=== PATIENT | female | born 1985 | race African-American/Black ===

== ENCOUNTER → 2016-08-11 | Outpatient (CLI) | payer MEDICAID ==
[2016-08-11 11:04] LABS: Basophils # (auto) 0 uL; Basophils % (auto) 0.3 % (0.0-2.0); DEFINITIVE VIEW TRANSMISSION; Eosinophils # (auto) 0.2 uL; Eosinophils % (auto) 4.1 % (0.0-7.0); Hematocrit 26.1 % (36.0-46.0); Hemoglobin 8.7 g/dL (12.2-16.2); Lymphocytes # (auto) 1.2 uL; Lymphocytes % (auto) 24.1 % (10.0-50.0); Mean Corpuscular Hemoglobin 24.9 pg (28.0-32.0); Mean Corpuscular Hgb Conc. 33.2 g/dL (32.0-36.0); Mean Corpuscular Volume 74.9 fL (80.0-100.0); Mean Platelet Volume 8.5 fL (7.4-10.4); Monocytes # (auto) 0.2 uL; Monocytes % (auto) 4.8 % (0.0-12.0); Neutrophils # (auto) 3.2 uL; Neutrophils % (auto) 66.7 % (37.0-80.0); Nucleated Red Blood Cells % 2.8 %; Platelet Count (auto) 293 10^3/uL (140-450); Red Cell Distribution Width 18.2 % (11.6-16.0); White Blood Cell 4.8 10^3/uL (4.4-10.8)
== END | disposition home or self-care (01) ==
LOC: LAB 10:34
PROVIDERS: ATTEND Obstetrics & Gynecology
DX: Z34.80 Encounter for supervision of other normal pregnancy, unspecified trimester (principal)
CPT/HCPCS: 36415; 80307; 85025; 86703; 86762; 86850; 86900; 86901; 87086; 87340

== ENCOUNTER → 2016-09-10 | Outpatient (CLI) | payer MEDICAID ==
[2016-09-10 10:37] LABS: Basophils # (auto) 0 uL; Basophils % (auto) 0.2 % (0.0-2.0); DEFINITIVE SEE PRINTOUT; Eosinophils # (auto) 0.2 uL; Eosinophils % (auto) 3.8 % (0.0-7.0); Hematocrit 26.4 % (36.0-46.0); Hemoglobin 8.4 g/dL (12.2-16.2); Lymphocytes # (auto) 1.3 uL; Lymphocytes % (auto) 28.2 % (10.0-50.0); Mean Corpuscular Hemoglobin 23.7 pg (28.0-32.0); Mean Corpuscular Hgb Conc. 31.8 g/dL (32.0-36.0); Mean Corpuscular Volume 74.6 fL (80.0-100.0); Mean Platelet Volume 8.2 fL (7.4-10.4); Monocytes # (auto) 0.3 uL; Monocytes % (auto) 7.3 % (0.0-12.0); Neutrophils % (auto) 60.5 % (37.0-80.0); Platelet Count (auto) 279 10^3/uL (140-450); Red Cell Distribution Width 15.6 % (11.6-16.0); White Blood Cell 4.8 10^3/uL (4.4-10.8)
== END | disposition home or self-care (01) ==
LOC: LAB 10:13
PROVIDERS: ATTEND Obstetrics & Gynecology
DX: O99.810 Abnormal glucose complicating pregnancy (principal); Z34.80 Encounter for supervision of other normal pregnancy, unspecified trimester
CPT/HCPCS: 36415; 82951; 83036; 85025

== ENCOUNTER 2016-10-21 09:50 | Observation (INO) | payer MEDICAID ==
[~2016-10-21] VITALS: Ht 152.4 cm; Wt 45.4 kg
[2016-10-21] MEDS ORDERED: BETAMETHASONE ACET (6MG/ML) 5ML VIAL ONE (11:01)
[2016-10-21] MEDS ORDERED: LABETALOL HCL 200 MG TAB PO ONE (12:00)
[2016-10-21 13:02] LABS: Basophils # (auto) 0 uL; Basophils % (auto) 0.4 % (0.0-2.0); CONDITION Y; DEFINITIVE SEE PRINTOUT; Eosinophils # (auto) 0.1 uL; Eosinophils % (auto) 3.5 % (0.0-7.0); Hematocrit 27.2 % (36.0-46.0); Hemoglobin 8.9 g/dL (12.2-16.2); Lymphocytes # (auto) 1.1 uL; Lymphocytes % (auto) 28.3 % (10.0-50.0); Mean Corpuscular Hgb Conc. 32.7 g/dL (32.0-36.0); Mean Corpuscular Volume 76.5 fL (80.0-100.0); Mean Platelet Volume 8.8 fL (7.4-10.4); Monocytes # (auto) 0.2 uL; Monocytes % (auto) 5.8 % (0.0-12.0); Neutrophils # (auto) 2.3 uL; Platelet Count (auto) 273 10^3/uL (140-450); Red Cell Distribution Width 19.1 % (11.6-16.0); SUSPECT SEE PRINTOUT; White Blood Cell 3.8 10^3/uL (4.4-10.8)
[2016-10-21 13:09] LABS: INR 0.93 (0.9-1.15); Prothrombin Time 10.1 sec (9.37-12.3)
[2016-10-21 13:18] LABS: Albumin 2.8 g/dL (3.4-5.0); BUN/Creatinine Ratio 13.2; Bilirubin, Total 0.4 mg/dL (0.2-1.0); Calcium 8.6 mg/dL (8.5-10.1); Potassium 3.1 mmol/L (3.5-5.1); Total Protein 7.5 g/dL (6.4-8.2); Uric Acid 4.4 mg/dL (2.6-6.0)
[2016-10-21 14:43] LABS: Urine Bilirubin Negative (Negative); Urine Blood Negative /uL (Negative); Urine Color Yellow (Yellow); Urine Glucose Normal (Normal); Urine Ketone Negative (Negative); Urine Nitrite Negative (Negative); Urine RBC <1 /hpf (0 - 4); Urine Urobilinogen Normal (Negative); Urine pH 6.5 (5.0-8.0)
[2016-10-21] MEDS ORDERED: POTASSIUM CHL 20 Meq TABLET PO ONE (14:45)
[2016-10-21] MEDS ORDERED: NIFEdipine 10 MG CAP PO ONE (14:45)
[2016-10-21 15:18] LABS: Ovalocytes FEW; Platelet Estimate Adequate
[2016-10-21 15:19] LABS: Anisocytosis Slight; Giant Platelets Few; Hypochromia Slight
[2016-10-21 15:20] LABS: Polychromasia Slight
[2016-10-21] MEDS ORDERED: BETAMETHASONE ACET (6MG/ML) 5ML VIAL IM SCH (22:00)
[2016-10-22] MEDS ORDERED: NIF10C PO (13:34)
[2016-10-22] MEDS ORDERED: FERR-7 PO (13:34)
[2016-10-22] MEDS ORDERED: PREN-129 PO (13:34)
== END 2016-10-21 16:30 | disposition home or self-care (01) | DRG 566 ==
LOC: LDRP 09:50
PROVIDERS: ADMIT Specialist; ATTEND Specialist
DX: O13.3 Gestational [pregnancy-induced] hypertension without significant proteinuria, third trimester (principal); Z3A.33 33 weeks gestation of pregnancy
CPT/HCPCS: 36415; 59025; 76815; 80053; 81001; 81002; 84550; 85025; 85362; 85379; 85610; 85730; G0378; J0702; 96372

== ENCOUNTER 2016-10-22 10:50 | Observation (INO) | payer MEDICAID ==
[2016-10-22] MEDS ORDERED: BETAMETHASONE ACET (6MG/ML) 5ML VIAL IM ONE (11:30)
[2016-10-22 11:33] LABS: Urine Bilirubin Negative (Negative); Urine Blood Negative /uL (Negative); Urine Color Yellow (Yellow); Urine Glucose Normal (Normal); Urine Ketone Negative (Negative); Urine Nitrite Negative (Negative); Urine RBC <1 /hpf (0 - 4); Urine Squamous Epithelial Cell FEW /hpf (<5); Urine Urobilinogen Normal (Negative); Urine pH 6.5 (5.0-8.0)
[2016-10-22] MEDS ORDERED: NIF10C PO (13:34)
[2016-10-22] MEDS ORDERED: PREN-129 PO (13:34)
[2016-10-22] MEDS ORDERED: FERR-7 PO (13:34)
== END 2016-10-22 13:20 | disposition home or self-care (01) | DRG 566 ==
LOC: LDRP 10:50
PROVIDERS: ADMIT Specialist; ATTEND Specialist
DX: O13.3 Gestational [pregnancy-induced] hypertension without significant proteinuria, third trimester (principal); Z3A.33 33 weeks gestation of pregnancy
CPT/HCPCS: 59025; 81001; 81002; 84156; 96372; G0378; J0702

== ENCOUNTER 2016-10-24 11:00 | Observation (INO) | payer MEDICAID ==
[~2016-10-24] VITALS: Ht 188 cm; Wt 110.2 kg
[~2016-10-24 11:00] MED LIST: FERR-7 PO; NIF10C PO; PREN-129 PO
[2016-10-24] MEDS ORDERED: LABETALOL HCL 200 MG TAB PO ONE (12:15)
[2016-10-24 12:32] LABS: Basophils # (auto) 0 uL; Basophils % (auto) 0.3 % (0.0-2.0); CONDITION Y; DEFINITIVE SEE PRINTOUT; Eosinophils # (auto) 0.1 uL; Eosinophils % (auto) 1.4 % (0.0-7.0); Hemoglobin 8.4 g/dL (12.2-16.2); Lymphocytes # (auto) 1.5 uL; Lymphocytes % (auto) 28.7 % (10.0-50.0); Mean Corpuscular Hgb Conc. 32.2 g/dL (32.0-36.0); Mean Corpuscular Volume 77.6 fL (80.0-100.0); Mean Platelet Volume 8.9 fL (7.4-10.4); Monocytes # (auto) 0.3 uL; Monocytes % (auto) 6.4 % (0.0-12.0); Neutrophils # (auto) 3.4 uL; Neutrophils % (auto) 63.2 % (37.0-80.0); Platelet Count (auto) 256 10^3/uL (140-450); Red Cell Distribution Width 19.1 % (11.6-16.0); SUSPECT SEE PRINTOUT; White Blood Cell 5.3 10^3/uL (4.4-10.8)
[2016-10-24 12:35] LABS: Nucleated Red Blood Cells % 4.7 %
[2016-10-24 12:47] LABS: INR 0.94 (0.9-1.15); Partial Thromboplastin Time 24.7 sec (22.64-33.71); Prothrombin Time 10.2 sec (9.37-12.3)
[2016-10-24 12:51] LABS: Albumin 2.8 g/dL (3.4-5.0); BUN/Creatinine Ratio 12.5; Calcium 8.2 mg/dL (8.5-10.1)
[2016-10-24 12:53] LABS: Microcytosis Slight
[2016-10-24 12:54] LABS: Anisocytosis Slight; Bilirubin, Total 0.2 mg/dL (0.2-1.0); Hypochromia Slight; Ovalocytes FEW; Platelet Estimate Adequate; Stomatocytes Few
[2016-10-24 12:55] LABS: Large Platelets FEW
[2016-10-24 12:59] LABS: Potassium 2.9 mmol/L (3.5-5.1)
[2016-10-24] MEDS ORDERED: POTASSIUM CHL 20 Meq TABLET PO ONE ×3 (13:15→20:30)
[2016-10-24] MEDS ORDERED: SOD CHL 0.9%/ KCL 40MEQ 1,000 ML IV SCH (13:15)
[2016-10-24] MEDS: POTASSIUM CHL 20MEQ/100ML 100 ML IV SCH ×2 (13:44→16:21)
[2016-10-24] MEDS ORDERED: hydrALAZINE HCL 20 MG/ML VL IV ONE (14:45)
[2016-10-24] MEDS ORDERED: hydrALAZINE HCL 20 MG/ML VL ONE (15:30)
[2016-10-24] MEDS ORDERED: NIFEdipine 10 MG CAP PO SCH ×2 (18:00→18:58)
[2016-10-24] MEDS ORDERED: NIFEdipine 10 MG CAP ONE (18:22)
[2016-10-25] MEDS ORDERED: LABETALOL HCL 200 MG TAB PO SCH
[2016-10-26 15:41] LABS: Uric Acid 4.1 mg/dL (2.6-6.0)
== END 2016-10-24 20:30 | disposition home or self-care (01) | DRG 566 ==
LOC: LDRP 11:00
PROVIDERS: ADMIT Specialist; ATTEND Specialist
DX: O13.3 Gestational [pregnancy-induced] hypertension without significant proteinuria, third trimester (principal); O60.03 Preterm labor without delivery, third trimester; O99.013 Anemia complicating pregnancy, third trimester; Z3A.33 33 weeks gestation of pregnancy; O26.893 Other specified pregnancy related conditions, third trimester; E87.6 Hypokalemia
CPT/HCPCS: 36415; 59025; 76818; 80053; 81002; 84132; 84156; 84550; 85025; 85379; 85610; 85730; 96361; 96374; G0378; J0360; J3480; 96365; 96366; 96375

== ENCOUNTER 2016-11-01 09:28 | Observation (INO) | payer MEDICAID ==
[2016-11-01 13:25] LABS: Basophils # (auto) 0 uL; Basophils % (auto) 0.6 % (0.0-2.0); CONDITION Y; DEFINITIVE SEE PRINTOUT; Eosinophils # (auto) 0.1 uL; Eosinophils % (auto) 2.9 % (0.0-7.0); Hematocrit 30.2 % (36.0-46.0); Lymphocytes # (auto) 1.3 uL; Lymphocytes % (auto) 26.3 % (10.0-50.0); Mean Corpuscular Hemoglobin 25.6 pg (28.0-32.0); Mean Corpuscular Hgb Conc. 33.2 g/dL (32.0-36.0); Mean Corpuscular Volume 77.1 fL (80.0-100.0); Mean Platelet Volume 9.2 fL (7.4-10.4); Monocytes # (auto) 0.3 uL; Monocytes % (auto) 5.8 % (0.0-12.0); Neutrophils # (auto) 3.1 uL; Neutrophils % (auto) 64.4 % (37.0-80.0); Platelet Count (auto) 289 10^3/uL (140-450); Red Cell Distribution Width 19.7 % (11.6-16.0); White Blood Cell 4.8 10^3/uL (4.4-10.8)
[2016-11-01 13:43] LABS: INR 0.92 (0.9-1.15); Partial Thromboplastin Time 27.8 sec (22.64-33.71)
[2016-11-01 13:44] LABS: Albumin 3.1 g/dL (3.4-5.0); BUN/Creatinine Ratio 12.9; Bilirubin, Total 0.3 mg/dL (0.2-1.0); Calcium 9.1 mg/dL (8.5-10.1); Potassium 3.5 mmol/L (3.5-5.1); Total Protein 7.8 g/dL (6.4-8.2); Uric Acid 4.2 mg/dL (2.6-6.0)
[2016-11-01 14:21] LABS: Anisocytosis Slight; Hypochromia Slight; Large Platelets FEW; Platelet Estimate Adequate
== END 2016-11-01 12:40 | disposition home or self-care (01) | DRG 566 ==
LOC: LDRP 09:28
PROVIDERS: ADMIT Specialist; ATTEND Specialist
DX: O26.893 Other specified pregnancy related conditions, third trimester (principal); Z3A.34 34 weeks gestation of pregnancy; O10.913 Unspecified pre-existing hypertension complicating pregnancy, third trimester; O60.03 Preterm labor without delivery, third trimester
CPT/HCPCS: 36415; 59025; 76818; 80053; 81002; 84550; 85025; 85610; 85730; G0378

== ENCOUNTER 2016-11-10 08:50 | Observation (INO) | payer MEDICAID ==
[~2016-11-10] VITALS: Ht 185.4 cm; Wt 108.9 kg
[2016-11-10 09:50] LABS: Basophils # (auto) 0 uL; Basophils % (auto) 0.3 % (0.0-2.0); CONDITION Y; DEFINITIVE SEE PRINTOUT; Eosinophils # (auto) 0.2 uL; Eosinophils % (auto) 5.4 % (0.0-7.0); Hematocrit 28.5 % (36.0-46.0); Hemoglobin 9.4 g/dL (12.2-16.2); Lymphocytes # (auto) 0.9 uL; Lymphocytes % (auto) 20.1 % (10.0-50.0); Mean Corpuscular Hemoglobin 25.2 pg (28.0-32.0); Mean Corpuscular Hgb Conc. 32.8 g/dL (32.0-36.0); Mean Corpuscular Volume 76.9 fL (80.0-100.0); Mean Platelet Volume 9.1 fL (7.4-10.4); Monocytes # (auto) 0.2 uL; Monocytes % (auto) 5.1 % (0.0-12.0); Neutrophils % (auto) 69.1 % (37.0-80.0); Platelet Count (auto) 225 10^3/uL (140-450); Red Cell Distribution Width 18.8 % (11.6-16.0); White Blood Cell 4.4 10^3/uL (4.4-10.8)
[2016-11-10 09:59] LABS: INR 0.9 (0.9-1.15); Partial Thromboplastin Time 28.3 sec (22.64-33.71); Prothrombin Time 9.8 sec (9.37-12.3)
[2016-11-10 10:21] LABS: Albumin 2.7 g/dL (3.4-5.0); BUN/Creatinine Ratio 11.1; Bilirubin, Total 0.3 mg/dL (0.2-1.0); Calcium 8.5 mg/dL (8.5-10.1); Total Protein 7.3 g/dL (6.4-8.2); Uric Acid 4.7 mg/dL (2.6-6.0)
[2016-11-10 10:25] LABS: Potassium 2.8 mmol/L (3.5-5.1)
[2016-11-10] MEDS ORDERED: POTASSIUM CHL 20 Meq TABLET PO ONE (11:00)
[2016-11-10] MEDS: POTASSIUM CHL 20MEQ/100ML 100 ML IV SCH ×2 (11:47→13:49)
[2016-11-10] MEDS ORDERED: NIFEdipine 10 MG CAP ONE (14:11)
[2016-11-10] MEDS ORDERED: NIFEdipine 10 MG CAP PO SCH ×2 (14:30→18:00)
[2016-11-10] MEDS ORDERED: LABETALOL HCL 200 MG TAB PO SCH (20:00)
== END 2016-11-10 20:21 | disposition home or self-care (01) | DRG 566 ==
LOC: LDRP 08:50
PROVIDERS: ADMIT Specialist; ATTEND Specialist
DX: O13.3 Gestational [pregnancy-induced] hypertension without significant proteinuria, third trimester (principal); E87.6 Hypokalemia; Z3A.35 35 weeks gestation of pregnancy
CPT/HCPCS: 36415; 59025; 80053; 81002; 83735; 84132; 84550; 85025; 85610; 85730; 86592; 96365; 96366; G0378; J3480; J7120; 96361; 96374

== ENCOUNTER 2018-12-11 23:40 | Observation (INO) | payer MEDICAID | END 2018-12-12 02:33 | disposition home or self-care (01) | DRG 566 | LOC: LDRP 23:40 | PROVIDERS: ADMIT Obstetrics & Gynecology; ATTEND Obstetrics & Gynecology | DX: O41.92X0 Disorder of amniotic fluid and membranes, unspecified, second trimester, not applicable or unspecified (principal); Z3A.27 27 weeks gestation of pregnancy | CPT/HCPCS: 59025; 76815; G0378 ==

== ENCOUNTER 2019-01-23 11:35 | Observation (INO) | payer MEDICAID ==
[2019-01-23] MEDS ORDERED: BETAMETHASONE ACET (6MG/ML) 5ML VIAL IM ONE (12:00)
== END 2019-01-23 12:10 | disposition left against medical advice (07) | DRG 861 ==
LOC: LDRP 11:35
PROVIDERS: ADMIT Obstetrics & Gynecology; ATTEND Obstetrics & Gynecology
DX: Z34.83 Encounter for supervision of other normal pregnancy, third trimester (principal); Z3A.33 33 weeks gestation of pregnancy
CPT/HCPCS: 59025; 81002; 96372; G0378; J0702

== ENCOUNTER 2019-02-27 14:55 | Observation (INO) | payer MEDICAID ==
[2019-02-27] MEDS ORDERED: NIF10C GT (16:09)
[2019-02-27 16:23] LABS: Basophils # (auto) 0 uL; Basophils % (auto) 0.3 % (0.0-2.0); Eosinophils # (auto) 0.1 uL; Hemoglobin 10.1 g/dL (12.2-16.2); Lymphocytes # (auto) 0.9 uL; Monocytes # (auto) 0.2 uL; Neutrophils # (auto) 2.8 uL; Red Cell Distribution Width 16.3 % (11.8-14.3)
[2019-02-27 16:26] LABS: Eosinophils % (auto) 1.9 % (0.0-7.0); Hematocrit 30.8 % (36.0-46.0); Lymphocytes % (auto) 21.7 % (10.0-50.0); Mean Corpuscular Hemoglobin 26.4 pg (28.0-32.0); Mean Corpuscular Hgb Conc. 32.8 g/dL (32.0-36.0); Mean Corpuscular Volume 80.5 fL (80.0-100.0); Monocytes % (auto) 5.8 % (0.0-12.0); Neutrophils % (auto) 70.3 % (37.0-80.0); Nucleated Red Blood Cells % 0.1 %; Platelet Count (auto) 236 10^3/uL (140-450); Red Blood Cells 3.83 10^6/uL (4.0-5.20)
[2019-02-27 16:29] LABS: Calcium 8.8 mg/dL (8.5-10.1); Potassium 3.6 mmol/L (3.5-5.1)
[2019-02-27 16:33] LABS: Bilirubin, Total 0.5 mg/dL (0.2-1.0); Total Protein 7.8 g/dL (6.4-8.2)
[2019-02-27 16:33] LABS: Urine Bacteria FEW /hpf (None Seen); Urine Blood Negative /uL (Negative); Urine Specific Gravity 1.007 (1.001-1.035); Urine WBC 1 /hpf (0 - 5)
[2019-02-27 16:44] LABS: INR 0.98 (0.9-1.15); Partial Thromboplastin Time 28.2 sec (23.64-32.05)
[2019-02-28 06:06] LABS: RPR Non Reactive (Non Reactive)
== END 2019-02-27 16:10 | disposition home or self-care (01) | DRG 566 ==
LOC: LDRP 14:55
PROVIDERS: ADMIT Obstetrics & Gynecology; ATTEND Obstetrics & Gynecology
DX: O26.893 Other specified pregnancy related conditions, third trimester (principal); R35.0 Frequency of micturition; Z3A.38 38 weeks gestation of pregnancy; Z98.891 History of uterine scar from previous surgery
CPT/HCPCS: 36415; 59025; 80053; 81001; 81002; 84112; 84550; 85025; 85610; 85730; 86592; 86850; 86900; 86901; G0378